=== PATIENT | female | born 1980 | race Caucasian/White ===

== ENCOUNTER 2016-07-16 10:42 | Inpatient (IN) | payer OTHER ==
[~2016-07-16] VITALS: Ht 165.1 cm; Wt 80.5 kg
[~2016-07-16 10:42] MED LIST: CHRO1TAB6; [UNRECOGNIZED DRUG - OTHER] PO; birthcontrol
[2016-07-16 11:54] VITALS: BP 101/65
[2016-07-16] MEDS ORDERED: OXYTOCIN 30U/ 0.9% NaCL 500ML 500 ML IV ONE (13:15)
[2016-07-16] MEDS ORDERED: OXYTOCIN 30U/ 0.9% NaCL 500ML 500 ML ONE (13:27)
[2016-07-16] MEDS ORDERED: NEWBORN KIT ONE (13:27)
[2016-07-16] MEDS ORDERED: MISOPROSTOL 200 MCG TABLET ONE (13:27)
[2016-07-16] MEDS ORDERED: OXYTOCIN 10 UNITS/ML, 1ML ONE (13:27)
[2016-07-16] MEDS ORDERED: LIDOCAINE 1%, 20ML ONE (13:28)
[2016-07-16] MEDS ORDERED: FENTANYL PF 100 MCG/2ML IV PRN (13:30)
[2016-07-16] MEDS ORDERED: MISOPROSTOL 200 MCG TABLET PR ONE (13:30)
[2016-07-16] MEDS ORDERED: ALUMINUM/MAG/SIMETHICONE 30 ML UDC PO PRN (13:30)
[2016-07-16] MEDS ORDERED: SODIUM CHLORIDE FLUSH 10ML SYR IVF PRN (13:30)
[2016-07-16] MEDS ORDERED: FENTANYL PF 100 MCG/2ML IVPush PRN (13:30)
[2016-07-16] MEDS ORDERED: TERBUTALINE 1 MG/ML, 1ML IVPush PRN ×2 (13:30)
[2016-07-16] MEDS ORDERED: ONDANSETRON 2MG/ML, 2ML IVPush PRN (13:30)
[2016-07-16] MEDS ORDERED: METHYLERGONOVINE 0.2 MG/ML IM PRN (13:30)
[2016-07-16] MEDS ORDERED: D5%-LACTATED RINGERS 1,000 ML IV SCH (14:30)
[2016-07-16] MEDS ORDERED: FAMOTIDINE 20 MG/2 ML IVPush ONE (14:30)
[2016-07-16] MEDS ORDERED: CALCIUM CARBONATE 500 MG TAB.CHEW ONE (16:25)
[2016-07-16] MEDS ORDERED: FAMOTIDINE 20 MG/2 ML ONE (16:33)
[2016-07-16] MEDS: LACTATED RINGERS 1,000 ML IV SCH ×2 (18:26→21:15)
[2016-07-16] MEDS: OXYTOCIN 30U/ 0.9% NaCL 500ML 500 ML IV SCH (20:06)
[2016-07-16] MEDS ORDERED: KETOROLAC 30 MG/1 ML ONE (20:09)
[2016-07-16] MEDS ORDERED: CALCIUM CARBONATE 500 MG TAB.CHEW PO PRN (20:30)
[2016-07-16] MEDS ORDERED: KETOROLAC 30 MG/1 ML IVPush ONE (20:30)
[2016-07-16] MEDS ORDERED: RHOGAM FROM BLOOD BANK 1 NOTE EA IM/IV ONE (20:30)
[2016-07-16] MEDS ORDERED: DOCUSATE 100 MG CAPSULE PO PRN (20:30)
[2016-07-16] MEDS ORDERED: ONDANSETRON 2MG/ML, 2ML IV PRN (20:30)
[2016-07-16] MEDS ORDERED: MISOPROSTOL 200 MCG TABLET PR PRN (20:30)
[2016-07-16] MEDS ORDERED: OXYcodone/APAP 5/325MG TABLET PO PRN (20:30)
[2016-07-16 21:34] VITALS: BP 100/62
[2016-07-17 00:02] VITALS: BP 98/61
[2016-07-17] MEDS ORDERED: D5%-LACTATED RINGERS 1,000 ML IV SCH (02:30)
[2016-07-17 04:00] VITALS: BP 98/56
[2016-07-17] MEDS: IBUPROFEN 600 MG TABLET PO PRN ×2 (04:51→17:16)
[2016-07-17] MEDS: OXYTOCIN 30U/ 0.9% NaCL 500ML 500 ML IV SCH ×2 (06:06→16:06)
[2016-07-17] MEDS ORDERED: PRENATAL VIT/IRON/FA 1 EACH TABLET ONE (07:55)
[2016-07-17 08:50] VITALS: BP 91/60
[2016-07-17] MEDS ORDERED: PRENATAL VIT/IRON/FA 1 EACH TABLET PO SCH (09:00)
[2016-07-17 16:20] VITALS: BP 105/69
[2016-07-17] MEDS ORDERED: IBUP-1222 PO (18:18)
== END 2016-07-17 20:25 | disposition home or self-care (01) | DRG 775 ==
LOC: LDOP 10:42 → LDIP 13:15 → 2NW 21:16
PROVIDERS: ADMIT Obstetrics & Gynecology; ATTEND Obstetrics & Gynecology
PROC: 10E0XZZ Delivery of Products of Conception, External Approach (ICD-10-PCS; principal; 2016-07-16)
PROC: 0KQM0ZZ Repair Perineum Muscle, Open Approach (ICD-10-PCS; 2016-07-16)
PROC: 10907ZC Drainage of Amniotic Fluid, Therapeutic from Products of Conception, Via Natural or Artificial Opening (ICD-10-PCS; 2016-07-16)
PROC: 3E0334Z Introduction of Serum, Toxoid and Vaccine into Peripheral Vein, Percutaneous Approach (ICD-10-PCS; 2016-07-17)
DX: O48.0 Post-term pregnancy (principal); O70.1 Second degree perineal laceration during delivery; O26.893 Other specified pregnancy related conditions, third trimester; Z3A.41 41 weeks gestation of pregnancy; Z87.410 Personal history of cervical dysplasia; Z37.0 Single live birth; Z87.59 Personal history of other complications of pregnancy, childbirth and the puerperium; Z67.41 Type O blood, Rh negative; Z91.011 Allergy to milk products
CPT/HCPCS: 36415; 85025; 85461; 86850; 86900; J1885; J2790; J2590; J7120; J7121; S0028